=== PATIENT | female | born 1990 | race Caucasian/White ===

== ENCOUNTER 2017-06-03 12:10 | Emergency (ER) | payer MEDICAID, OTHER ==
[~2017-06-03] VITALS: Ht 152.4 cm; Wt 72.5 kg
[~2017-06-03 12:10] MED LIST: HYDR1TAB16 PO
[2017-06-03 12:19] VITALS: BP 109/66
[2017-06-03] MEDS ORDERED: LIDOCAINE 1%, 20ML ONE (12:36)
[2017-06-03] MEDS ORDERED: LIDOCAINE 1%, 20ML SQ ONE (13:00)
== END 2017-06-03 13:43 | disposition home or self-care (01) ==
LOC: ED 13:37
DX: L02.412 Cutaneous abscess of left axilla (principal); F17.200 Nicotine dependence, unspecified, uncomplicated
CPT/HCPCS: 10060; 99283

== ENCOUNTER 2017-06-11 15:31 | Emergency (ER) | payer MEDICAID, OTHER ==
[~2017-06-11] VITALS: Ht 162.6 cm; Wt 72.4 kg
[2017-06-11 16:11] VITALS: BP 114/52
[2017-06-11] MEDS ORDERED: FLUORESCEIN OPHTHALMIC 1 MG STRIP ONE (16:20)
[2017-06-11] MEDS ORDERED: PROPARACAINE OPHTH 0.5%, 15ML ONE (16:21)
[2017-06-11] MEDS ORDERED: PROPARACAINE OPHTH 0.5%, 15ML RIGHTEYE ONE (16:30)
[2017-06-11] MEDS ORDERED: FLUORESCEIN OPHTHALMIC 1 MG STRIP RIGHTEYE ONE (16:30)
== END 2017-06-11 18:09 | disposition home or self-care (01) ==
LOC: ED 18:03
DX: S05.11XA Contusion of eyeball and orbital tissues, right eye, initial encounter (principal); W50.0XXA Accidental hit or strike by another person, initial encounter; Y93.89 Activity, other specified; Y92.89 Other specified places as the place of occurrence of the external cause; Y99.8 Other external cause status
CPT/HCPCS: 70450; 70486; 99284

== ENCOUNTER 2021-04-11 21:25 | Emergency (ER) | payer MEDICAID ==
[~2021-04-11] VITALS: Ht 154.9 cm; Wt 78.7 kg
[2021-04-11] MEDS ORDERED: ONDANSETRON ODT 4 MG PO ONE (22:00)
[2021-04-11 23:07] LABS: BASOPHILS % (AUTO) 1 % (0-1); EOSINOPHILS % (AUTO) 1 % (1-7); LYMPHOCYTES % (AUTO) 8 % (22-44); MEAN CORPUSCULAR HEMOGLOBIN 32.9 pg (27.0-34.8); MEAN CORPUSCULAR HGB CONC 33.8 g/dL (32.4-35.8); MEAN PLATELET VOLUME 11.2 fL (7.4-10.4); MONOCYTES % (AUTO) 10 % (2-9); NEUTROPHILS % (AUTO) 81 % (42-75); PLATELET COUNT 182 x10^3/uL (130-400); RED BLOOD COUNT 4.58 x10^6/uL (3.82-5.3); RED CELL DISTRIBUTION WIDTH 13.5 % (9.6-15.2)
[2021-04-11 23:16] LABS: ANION GAP 5 mmol/L (5-15); CALCIUM 8.6 mg/dL (8.5-10.1); CHLORIDE 112 mmol/L (98-107)
[2021-04-11 23:21] LABS: ALANINE AMINOTRANSFERASE 25 U/L (12-78); ALKALINE PHOSPHATASE 68 U/L (45-117); BILIRUBIN,TOTAL 0.3 mg/dL (0.2-1.0); CREATININE 0.66 mg/dL (0.55-1.02); TOTAL PROTEIN 8.1 g/dL (6.4-8.2)
--- NOTE | 2021-04-11 23:37 | NUR ---
ware tester: pt from lobby to room 35
[2021-04-11] MEDS ORDERED: ACETAMINOPHEN 500 MG TABLET ONE (23:56)
[2021-04-11] MEDS ORDERED: ONDANSETRON ODT 4 MG ONE (23:56)
[2021-04-12] MEDS ORDERED: ACETAMINOPHEN 500 MG TABLET PO ONE
[2021-04-12 00:27] LABS: MICROSCOPIC NOT IND
--- NOTE | 2021-04-12 02:42 | NUR ---
PT REC'VD DISCHARGE INSTRUCTIONS AND EDUCATIO. PT HAD NO FURTHER QUESTIONS.
[2021-04-12 02:43] VITALS: BP 95/40
--- NOTE | 2021-04-12 02:52 | NUR ---
PT AMBULATED TO NV AREA, STEADY GAIT.
== END 2021-04-12 02:54 | disposition home or self-care (01) ==
LOC: ED 22:00
DX: A08.4 Viral intestinal infection, unspecified (principal); R11.2 Nausea with vomiting, unspecified; R51.9 Headache, unspecified
CPT/HCPCS: 36415; 80053; 81003; 84703; 85025; 99285; Q0162